=== PATIENT | female | born 1955 | race Caucasian/White ===

== ENCOUNTER 2022-05-26 09:33 | Emergency (ER) | payer BC, MEDICAID ==
[~2022-05-26] VITALS: Ht 165.1 cm; Wt 105.0 kg
[2022-05-26] MEDS ORDERED: AMLODIPINE 5MG TABLET PO ONE (09:45)
[2022-05-26] MEDS ORDERED: LORAZEPAM 0.5MG TABLET PO ONE (12:00)
[2022-05-26] MEDS ORDERED: AMLODIPINE 5MG TABLET PO NR (12:00)
[2022-05-26 12:49] LABS: BASOPHILS % 0.7 % (0.0-2.0); EOSINOPHILS % 2.5 % (0.0-5.0); HEMATOCRIT. 40.8 % (36.0-48.0); HEMOGLOBIN. 13.5 g/dL (12.0-16.0); LYMPHOCYTES % 23.3 % (20.0-50.0); MEAN CORPUSCULAR HEMOGLOBIN 27.8 pg (28.0-32.0); MEAN PLATELET VOLUME 9.3 fl (7.4-10.4); MONOCYTES % 7.4 % (2.0-8.0); NEUTROPHILS % 66.1 % (40.0-76.0); PLATELET 203 x1000/uL (130-400); RED BLOOD CELL COUNT 4.85 mill/uL (4.2-5.4); RED CELL DISTRIBUTION WIDTH 14.1 % (11.6-14.6)
[2022-05-26 12:52] LABS: CLARITY URINE CLEAR (CLEAR); COLOR URINE YELLOW (YELLOW); KETONES URINE NEGATIVE (NEGATIVE); LEUKOCYTE ESTERASE URINE 3+ (NEGATIVE); NITRITE URINE NEGATIVE (NEGATIVE); OCCULT BLOOD URINE NEGATIVE (NEGATIVE); PH URINE 6.5 (4.5-8.0); PROTEIN URINE NEGATIVE (NEGATIVE); SPECIFIC GRAVITY URINE 1.019 (1.005-1.030)
[2022-05-26 12:55] LABS: CHLORIDE 107 mEq/L (98-107)
[2022-05-26] MEDS ORDERED: AMLO5TAB4 MT (14:33)
[2022-05-26] MEDS ORDERED: CEPH500C2 MT (14:33)
[2022-05-26 15:37] VITALS: BP 153/89
== END 2022-05-26 15:40 | disposition home or self-care (01) ==
LOC: ER 10:16
DX: I16.0 Hypertensive urgency (principal); N39.0 Urinary tract infection, site not specified
CPT/HCPCS: 36415; 71045; 80053; 81003; 84484; 85025; 93005; 99285